=== PATIENT | male | born 2000 | race African-American/Black ===

== ENCOUNTER 2021-01-30 16:16 | Emergency (ER) | payer BC, SELFPAY ==
[2021-01-30] MEDS ORDERED: Ondansetron ODT 4 MG TAB ONE (16:40)
== END 2021-01-30 17:29 | disposition home or self-care (01) ==
LOC: NAV ERS 16:16
DX: K52.9 Noninfective gastroenteritis and colitis, unspecified (principal)
CPT/HCPCS: 99283; Q0162

== ENCOUNTER 2021-02-23 12:09 | Emergency (ER) | payer BC, SELFPAY ==
[2021-02-24 08:18] LABS: SARS-CoV-2 PCR by NAA Not Detected (NotDetected)
== END 2021-02-23 12:50 | disposition home or self-care (01) ==
LOC: NAV ERS 12:09
DX: J06.9 Acute upper respiratory infection, unspecified (principal); Z20.822 Contact with and (suspected) exposure to COVID-19
CPT/HCPCS: 99283; U0003; U0005

== ENCOUNTER 2021-04-07 10:33 | Emergency (ER) | payer BC ==
[2021-04-07] MEDS ORDERED: Diphenoxylate HCl/Atropine Tablet ONE (10:50)
== END 2021-04-07 11:05 | disposition home or self-care (01) ==
LOC: NAV ERS 10:33
DX: K52.9 Noninfective gastroenteritis and colitis, unspecified (principal)
CPT/HCPCS: 99283

== ENCOUNTER 2021-04-08 00:07 | Emergency (ER) | payer BC ==
[2021-04-08] MEDS ORDERED: Bupivacaine 0.5% 10 ML VIAL ONE (00:23)
== END 2021-04-08 00:41 | disposition home or self-care (01) ==
LOC: NAV ERS 00:07
DX: K08.89 Other specified disorders of teeth and supporting structures (principal)
CPT/HCPCS: 99282; J3490

== ENCOUNTER 2021-04-25 18:51 | Emergency (ER) | payer BC | END 2021-04-25 19:30 | disposition home or self-care (01) | LOC: NAV ERS 18:51 | DX: H60.501 Unspecified acute noninfective otitis externa, right ear (principal) | CPT/HCPCS: 99282 ==

== ENCOUNTER 2021-06-15 08:19 | Emergency (ER) | payer BC, SELFPAY | END 2021-06-15 08:50 | disposition home or self-care (01) | LOC: NAV ERS 08:19 | DX: K52.9 Noninfective gastroenteritis and colitis, unspecified (principal); F17.210 Nicotine dependence, cigarettes, uncomplicated | CPT/HCPCS: 99281 ==

== ENCOUNTER 2021-12-24 07:45 | Emergency (ER) | payer SELFPAY ==
[2021-12-24] MEDS ORDERED: Ondansetron PF 4 MG/2 ML Vial ONE (08:32)
[2021-12-24 08:54] LABS: #Basophils 0.1 thou/uL (0.0-0.2); #Eosinphils 0.1 thou/uL (0.0-0.7); #Lymphocytes 2.1 thou/uL (1.20-3.40); #Monocytes 0.9 thou/uL (0.11-0.59); #Neutrophils 8.1 thou/uL (1.40-6.50); %Basophils 0.8 % (0.0-1.0); %Eosinophils 0.7 % (0.0-10.0); %Lymphocytes 18.4 % (21.0-51.0); %Monocytes 7.9 % (0.0-10.0); %Neutrophils 72.2 % (42.0-75.0); Hemoglobin 13.3 g/dL (14.0-18.0); Mean Corpuscular HGB CONC 30.5 g/dL (32.0-36.0); Mean Corpuscular Hemoglobin 28.1 pg (27.0-31.0); Mean Corpuscular Volume 92.1 fL (78.0-98.0); Mean Platelet Volume 10.6 fL (7.4-10.4); Platelet Count 190 thou/uL (130-400); RBC Distribution Width 12.4 % (11.5-14.5); Red Blood Cell (RBC) Count 4.73 mill/uL (4.70-6.10); White Blood Cell (WBC) Count 11.3 thou/uL (4.8-10.8)
[2021-12-24 08:58] LABS: Bilirubin Negative (Negative); Blood, Urine Negative (Negative); Clarity Clear (Clear); Glucose, Urine (Dipstick) Negative (Negative); Ketone, Urine Negative (Negative); Leukocyte Negative (Negative); Nitrite Negative (Negative); Protein, Urine (Dipstick) Negative (Neg-Trace); Urobilinogen 0.2 mg/dL (Less than 2)
[2021-12-24 09:13] LABS: ALT (SGPT) 30 U/L (8-55); AST (SGOT) 23 U/L (5-34); Albumin 4.6 g/dL (3.5-5.0); Alkaline Phosphatase 49 U/L (40-110); Anion Gap 15 mmol/L (10-20); BUN (Urea Nitrogen) 13 mg/dL (8.9-20.6); Bilirubin, Total 0.3 mg/dL (0.2-1.2); Calc. Creatinine Clearance 0 mL/min (70-130); Calcium 9.3 mg/dL (7.8-10.44); Carbon Dioxide 22 mmol/L (22-29); Chloride 106 mmol/L (98-107); Globulin 2.5 g/dL (2.4-3.5); Glucose 93 mg/dL (70-105); Lipase 10 U/L (8-78); Potassium 4.1 mmol/L (3.5-5.1); Protein, Total 7.1 g/dL (6.0-8.3); Sodium 139 mmol/L (136-145)
== END 2021-12-24 10:02 | disposition home or self-care (01) ==
LOC: NAV ERS 07:45
DX: R11.2 Nausea with vomiting, unspecified (principal); R19.7 Diarrhea, unspecified; R10.9 Unspecified abdominal pain
CPT/HCPCS: 80053; 81003; 83690; 85025; 94760; 96361; 96374; J2405

== ENCOUNTER 2022-01-06 08:10 | Emergency (ER) | payer SELFPAY | END 2022-01-06 08:49 | disposition home or self-care (01) | LOC: NAV ERS 08:10 | DX: U07.1 COVID-19 (principal) | CPT/HCPCS: 87804; 99284; U0003; U0005 ==

== ENCOUNTER 2022-05-16 22:00 | Emergency (ER) | payer SELFPAY ==
[2022-05-16] MEDS ORDERED: Ondansetron ODT 4 MG TAB ONE (22:18)
== END 2022-05-16 22:35 | disposition home or self-care (01) ==
LOC: NAV ERS 22:00
DX: K52.9 Noninfective gastroenteritis and colitis, unspecified (principal); F17.210 Nicotine dependence, cigarettes, uncomplicated
CPT/HCPCS: 99283; Q0162

== ENCOUNTER 2022-08-09 08:10 | Emergency (ER) | payer BC, SELFPAY ==
[2022-08-09 09:17] LABS: Clarity Clear (Clear); Specific Gravity, Urine 1.004 (1.002-1.036)
[2022-08-09 09:18] LABS: Glucose, Urine (Dipstick) Negative (Negative); Ketone, Urine Negative (Negative); Leukocyte Negative (Negative); Nitrite Negative (Negative); Protein, Urine (Dipstick) Negative (Neg-Trace); Urobilinogen 0.2 mg/dL (Less than 2); pH, Urine 5.5 (5.0-9.0)
[2022-08-09 09:19] LABS: Bilirubin Negative (Negative); Blood, Urine Negative (Negative)
== END 2022-08-09 09:44 | disposition home or self-care (01) ==
LOC: NAV ERS 08:10
DX: R30.0 Dysuria (principal); F17.210 Nicotine dependence, cigarettes, uncomplicated
CPT/HCPCS: 81003; 99283

== ENCOUNTER 2022-08-10 09:48 | Emergency (ER) | payer OTHER, BC | END 2022-08-10 10:58 | disposition home or self-care (01) | LOC: NAV ERS 09:48 | DX: S80.12XA Contusion of left lower leg, initial encounter (principal); F17.210 Nicotine dependence, cigarettes, uncomplicated; V43.52XA Car driver injured in collision with other type car in traffic accident, initial encounter ==